=== PATIENT | male | born 1970 | race Caucasian/White ===

== ENCOUNTER 2019-10-17 18:57 | Emergency (ER) | payer SELFPAY ==
[~2019-10-17] VITALS: Ht 182.9 cm; Wt 91.1 kg
[2019-10-17 19:33] VITALS: BP 123/84
[2019-10-17] MEDS ORDERED: METO25TA35 PO (19:35)
[2019-10-17] MEDS ORDERED: FAMO40TA61 PO (19:35)
--- NOTE | 2019-10-17 19:38 | NUR ---
STATES HX OF PVCS AND PACS. HIS LEFT HIM SUDDENLY TWO WEEKS AND AND SINCE THE HIS HEART HAS BEEN "ALL OVER HELL AND CREATION". HAS BEEN HAVING CHEST PAINS IN THE MORNING. per triage note pt seems like depressed but denied SI or SA at this time of er visit quality assurance monitor body is nsr no ectopy vss stable pt is in imaging now
[2019-10-17 19:59] LABS: BASOPHILS # (AUTO) 0.02 x10^3/uL (0-0.1); BASOPHILS % (AUTO) 0 % (0-1); EOSINOPHILS # (AUTO) 0.04 x10^3/uL (0-0.4); EOSINOPHILS % (AUTO) 1 % (1-7); LYMPHOCYTES % (AUTO) 21 % (22-44); MD NO; MEAN CORPUSCULAR HEMOGLOBIN 29.7 pg (27.5-34.5); MEAN CORPUSCULAR HGB CONC 33.6 g/dL (33.2-36.2); MEAN CORPUSCULAR VOLUME 88.3 fL (81-97); MEAN PLATELET VOLUME 8.6 fL (7.4-10.4); MONOCYTES # (AUTO) 0.61 x10^3/uL (0.2-0.8); MONOCYTES % (AUTO) 8 % (2-9); NEUTROPHILS # (AUTO) 5.24 x10^3/uL (1.8-6.8); NEUTROPHILS % (AUTO) 70 % (42-75); PLATELET COUNT 221 x10^3/uL (130-400); RED BLOOD COUNT 5.05 x10^6/uL (4.38-5.82); RED CELL DISTRIBUTION WIDTH 13.6 % (9.4-14.8)
[2019-10-17] MEDS ORDERED: LORazepam 0.5MG TABLET PO ONE (20:00)
--- NOTE | 2019-10-17 20:05 | NUR ---
REPORT FROM FREDY ENCISO. PT RESTING IN GURNEY W/ EYES OPEN, NAD NOTED. BP/SPO2/ECG MONITORING IN PLACE. NSR ON MONITOR. AWAITING LAB/IMAGING RESULTS FOR DISPO
[2019-10-17 20:07] LABS: ANION GAP 4 mmol/L (5-15); CALCIUM 8.8 mg/dL (8.5-10.1); CHLORIDE 106 mmol/L (98-107); CREATININE 1.02 mg/dL (0.7-1.3)
[2019-10-17 20:11] LABS: TROPONIN I < 0.015 ng/mL (0.000-0.045)
--- NOTE | 2019-10-17 20:52 | NUR ---
DC EDUCATION PROVIDED, PT DEMONSTRATES UNDERSTANDING. PT AMBULATED STEADILY TO DC WITH RN
== END 2019-10-17 20:54 | disposition home or self-care (01) ==
LOC: ED 20:00
DX: R07.89 Other chest pain (principal); F41.8 Other specified anxiety disorders; R11.0 Nausea; R51 Headache; Z72.9 Problem related to lifestyle, unspecified
CPT/HCPCS: 36415; 71046; 80048; 82040; 84484; 85025; 93005; 99284

== ENCOUNTER 2019-11-05 18:30 | Emergency (ER) | payer OTHER ==
[~2019-11-05] VITALS: Ht 182.9 cm; Wt 85.9 kg
[~2019-11-05 18:30] MED LIST: FAMO40TA61 PO; METO25TA35 PO
[2019-11-05 18:54] VITALS: BP 143/83
== END 2019-11-05 20:53 | disposition home or self-care (01) ==
LOC: ED 20:00
DX: S70.11XA Contusion of right thigh, initial encounter (principal); Z87.891 Personal history of nicotine dependence; X58.XXXA Exposure to other specified factors, initial encounter; Y93.89 Activity, other specified; Y92.89 Other specified places as the place of occurrence of the external cause; Y99.8 Other external cause status
CPT/HCPCS: 99284

== ENCOUNTER 2019-12-07 22:57 | Emergency (ER) | payer OTHER, SELFPAY ==
[~2019-12-07] VITALS: Ht 182.9 cm; Wt 89.1 kg
[2019-12-07 23:01] VITALS: BP 144/82
[2019-12-08 00:09] LABS: RAPID INFLUENZA A Negative (Negative); RAPID INFLUENZA B Negative (Negative)
== END 2019-12-08 00:25 | disposition home or self-care (01) ==
LOC: ED 12-08 00:16
DX: B34.9 Viral infection, unspecified (principal); Z20.828 Contact with and (suspected) exposure to other viral communicable diseases; R05 Cough; M79.10 Myalgia, unspecified site
CPT/HCPCS: 71045; 87400; 99284